=== PATIENT | male | born 1990 | race African-American/Black ===

== ENCOUNTER 2024-05-19 19:32 | Emergency (ER) | payer OTHER ==
[~2024-05-19] VITALS: Ht 190.5 cm; Wt 84.4 kg
[2024-05-19 23:13] LABS: HEMATOCRIT 44.2 % (39.0-48.0); HEMOGLOBIN 14.7 g/dL (13-16.00); MEAN CORPUSCULAR HEMOGLOBIN 29.3 pg (27.00-32.0); MEAN CORPUSCULAR HGB CONC 33.3 g/dl (32.0-36.0); PLATELET COUNT 364 K/uL (150-450); RED BLOOD COUNT 5.03 M/uL (4.00-6.00); RED CELL DISTRIBUTION WIDTH 13.4 % (11.5-14.5)
[2024-05-19 23:14] LABS: PH,URINE 5.5 (5.0-8.0); URINE APPEARANCE Clear; URINE BILIRRUBIN Negative (NEGATIVE); URINE BLOOD Trace; URINE COLOR Yellow; URINE GLUCOSE Negative (NEGATIVE); URINE KETONE 15 (NEGATIVE); URINE LEUKOCYTE Negative; URINE NITRATE Negative; URINE PROTEIN 30 (NEGATIVE)
[2024-05-19 23:18] LABS: URINE BACTERIA 18.3 uL (0.0-1933); URINE EPITHELIAL CELLS 2.2 uL (0.0-38.8); URINE WBC 8.3 uL (0.0-23.2)
[2024-05-19 23:20] LABS: URINE CAST 0.14 uL (0.0-1.40)
[2024-05-19 23:32] LABS: ALBUMIN 4.2 gm/dL (3.4-5.0); BILIRUBIN TOTAL 0.84 mg/dL (0.3-1.2); CALCIUM 9.4 mg/dL (8.5-10.1); GFR 86.05; GLOBULINA 3.6 G/DL (2.4-3.5); POTASSIUM 4.06 mEq/L (3.5-5.1); TOTAL PROTEIN 7.8 gm/dL (6.4-8.2)
[2024-05-20] MEDS ORDERED: MONODOX100 MG PO (00:09)
[2024-05-20] MEDS ORDERED: CEFTRIAXONE SODIUM 1,000 MG VIAL IM ONE (00:15)
[2024-05-20] MEDS ORDERED: LIDOCAINE HCL 1% 10ML VIAL ONE (00:38)
[2024-05-20] MEDS ORDERED: CEFTRIAXONE SODIUM 1,000 MG VIAL ONE (00:38)
== END 2024-05-20 00:53 | disposition home or self-care (01) ==
LOC: ER 19:35
PROVIDERS: Preventive Medicine Public Health & General Preventive Medicine
DX: N34.2 Other urethritis (principal)